=== PATIENT | female | born 1990 | race Hispanic/Latino ===

== ENCOUNTER 2025-06-03 04:54 | Emergency (ER) | payer SELFPAY ==
[2025-06-03 04:58] VITALS: BP 134/86; PULSE 92; RESP 18; TEMP 36.8; O2SAT 98
--- NOTE | 2025-06-03 06:21 | ED_ITS ---
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 This pain is bilaterally although worse the right compared to the left. Patient feels like it is pinching. Was initially reported that she felt dizzy but she denies this. She does have a headache. She states she feels inflamed. Has been trying ibuprofen and Tylenol at home but that does not help. No nausea. She also has a sore throat for which she experiences pain particularly when she eats or drinks water or speaks. She states it hurts to open her mouth. Symptoms started 3 days ago. She den ies any nasal congestion or rhinorrhea. No fevers but she had chills yesterday. She feels like her ear is draining. No cough. She denies any itchy eyes or ear. She has not been sneezing. She noticed that she had some diminished hearing in her right ear yesterday, not today. No tinnitus. Confirm she has a PCP. Related Data Allergies Allergy/AdvReac Type Severity Reaction Status Date / Time No Known Allergies Allergy Verified 06/03/25 06:30 Exam Narrative: GENERAL: Well-appearing, well-nourished, in moderate acute distress. HEAD: Normocephalic, atraumatic. EYES: Non icteric ENT: no epistaxis. Gross auditory acuity intact. Left external auditory canal with erythema but no effusion or bulging tympanic membrane which is otherwise pearly onofre. Patient does have tenderness to palpation and manipulation of the right ear. There is also drainage noted in the external auditory canal with erythema as well. Patient does not fully open mouth but no stefany trismus. Bilateral tonsillar hypertrophy. Uvula midline. No dysphonia. NECK: Supple. No meningismus. Mild lymphadenopathy. CHEST: Speaking in full sentences. No respiratory distress. HEART: Regular rate and rhythm. ABDOMEN: Obese but Soft, nondistended. EXTREMITIES: Normal range of motion. SKIN: Warm, dry, no rash. NEURO: No focal deficits. Alert and oriented. Answering questions. Following commands. Normal speech without aphasia or dysarthria. Observed ambulating with steady gait. PSYCH: Congruent mood and affect. Tearful Course Vital Signs Vital signs: Vital Signs Temperature 98.2 F 06/03/25 04:58 Pulse Rate 92 06/03/25 04:58 Respiratory Rate 18 06/03/25 04:58 Blood Pressure 134/86 06/03/25 04:58 Pulse Oximetry 98 06/03/25 04:58 Oxygen Delivery Room Air 06/03/25 04:58 Temperature 98.2 F 06/03/25 04:58 Pulse Rate 80 06/03/25 07:26 Respiratory Rate 18 06/03/25 07: Blood Pressure 139/83 06/03/25 07:26 Pulse Oximetry 99 06/03/25 07:26 Oxygen Delivery Room Air 06/03/25 04:58 Medical Decision Making MDM Narrative Medical decision making narrative: Patient presents with report of bilateral ear pain although right greater than left. She has also had headache and endorses a sore throat; symptoms started 3 days ago. Ibuprofen and Tylenol are not helping. Chills yesterday. No cough. In the emergency department they are afebrile with vital signs within normal limits. Strep not detected. Viral swab negative. Patient given 10 mg p.o. Decadron to reduce the inflammation and swelling consistent with pharyngitis. Also given ketorolac and lozenge. Prescribed ear drops, lozenges, Chloraseptic spray, and combination [id number] analgesic medications. Advised follow up. Otherwise stable for discharge, non toxic appear ing. VS remain normal. Differential Diagnosis Differential Diagnosis: Otitis media, otitis externa; acute viral syndrome; pharyngitis, strep pharyngitis; considered retropharyngeal abscess, peritonsillar abscess Vital Signs Vital Signs: Vital Signs Temperature 98.2 F 06/03/25 04:58 Pulse Rate 92 06/03/25 04:58 Respiratory Rate 18 06/03/25 04:58 Blood Pressure 134/86 06/03/25 04:58 Pulse Oximetry 98 06/03/25 04:58 Oxygen Delivery Room Air 06/03/25 04:58 Temperature 98.2 F 06/03/25 04:58 Pulse Rate 80 06/03/25 07:26 Respiratory Rate 18 06/03/25 07:26 Blood Pressure 139/83 06/03/25 07:26 Pulse Oximetry 99 06/03/25 07:26 Oxygen Delivery Room Air 06/03/25 04:58 Lab Data Labs: Lab Results 06/03/25 Range/Units 06:38 Influenza A (RT-PCR) Negative (Negative) Influenza B (RT-PCR) Negative (Negative) RSV (RT-PCR) Negative (Negative) SARS-CoV-2 RNA (RT-PCR) Negative (Negative) Group A Strep (PCR) Not detected (Negative) Discharge Plan Discharge Clinical Impression: External otitis of right ear, Pharyngitis, Acute viral syndrome, Otalgia of both ears, Cephalgia Patient Disposition: Home Condition: Stable Instructions: Antibiotic Form, Pharyngitis (ED), Swimmer's Ear (AC), Acute Headache (DC), Earache (ED), Viral Syndrome (ED) Additional Instructions: You tested negative for COVID, influenza a, influenza B, RSV, and strep. Follow-up with your primary care physician. Acetaminophen/Tylenol (maximum 4000 mg per day) is safe to take with NSAIDs (ibuprofen/Motrin) for pain relief. Abstain from water sports for 7-10 days. Avoid Q-tip or other foreign objects in the ear. Instill the antibiotic medication/drops into the ear while laying on your side and hold position for 3-5 minutes. Lozenges and spray have also been prescribed for the sore throat. You can also gargle with salt water. Return to the emergency department with any new or worsening symptoms such as difficulty breathing, unable to maintain hydration, unable to open mouth, fever >100.4F, etc. Patient Language: Stateless Prescriptions: New ofloxacin 0.3 % drops 5 drp EACH EAR DAILY 7 Days Qty: 10 0RF ibuprofen 600 mg tablet 600 mg PO TID PRN (Reason: pain) Qty: 30 0RF acetaminophen 500 mg capsule 1,000 mg PO Q6H PRN (Reason: pain) Qty: 30 0RF Cepacol Sore Throat (gillian-men) 15-2.6 mg lozenge 1 ana lilia mucous membrane Q2-4H PRN (Reason: sore throat) Qty: 16 0RF Chloraseptic Max Sore Throat 1.5-33 % spray,non-aerosol 1 spray mucous membrane 4-6XD PRN (Reason: sore throat) Qty: 118 0RF Rx Instructions: leave on area for 15 seconds then spit out; use at least 2 hours between doses Follow-up/Referrals: UNKNOWN,DOCTOR [Non-Staff] - Stand Alone Forms: Work/School Release IP Time of Disposition: 07:43
[2025-06-03] MEDS: KETOROLAC 30 MG/ML VIAL (*BKC) IM (06:43)
--- OUTSIDE RECORDS SUMMARY | 2025-06-03 06:51 | XMS_ITS | Clinical Summary ---
Author Organization [facility] Address [address] [place] [id number] Care Team Providers Care Apprentice Electrician Name Role Phone Alla Miles PA-C Primary Care Provider [phone] Allergies No known active allergies Medications methylPREDNISol angeles SHARON, (MEDROL DOSEPAK) 4 MG tablet 6 TABLETS ON DAY ONE, 5 TABLETS DAY TWO, 4 TABLETS DAY THREE, 3 TABLETS DAY FOUR, 2 TABLETS DAY FIVE, AND 1 TABLET DAY SIX 1 each 06/22/2024 Active Social History Tobacco Use Types Packs/Day Years Used Date Smoking Tobacco: Never Assessed Comments No Sex and Gender Information Value Date Recorded Sex Assigned at Not on file Legal Sex Female 9:38 AM CDT Gender Identity Not on file Sexual Orientation Not on file Last Filed Vital Signs Vital Sign Reading Time Taken Comments Blood Pressure 126/72 06/22/2024 11:21 AM CDT Pulse 79 06/22/2024 9:41 AM CDT Temperature 36.7 C (98 F) 06/22/2024 11:21 AM CDT Respiratory Rate 16 06/22/2024 11:21 AM CDT Oxygen Saturation 98% 06/22/2024 11:21 AM CDT Inhaled Oxygen Concentration - - Weight 113.4 kg (250 lb) 06/22/2024 9:41 AM CDT Height 152.4 cm (5') 06/22/2024 9:41 AM CDT Body Mass Index 48.82 06/22/2024 9:41 AM CDT Plan of Treatment Health Maintenance Due Date Last Done Comments Cervical Cancer Screening Pa ngozi Smear (Age 30 to 64) Every 3 Years 1992 Annual Physical 1995 Hepatitis C 2010 Hepatitis B Vaccines (1 of 3 - 19+ 3-dose series) 2011 HPV Vaccines (1 - 3-dose SCD M series) 2019 Cervical Cancer Screening Neri melvin with HPV Testing (Age 30 to 64) Every 5 Years 2022 Cervical Cancer Screening wi th HPV 2022 COVID-19 Vaccine (3 - 2023-2 5 season) 2024 11/21/2021, 10/24/2021 DTaP, Tdap and Td Vaccines ( 2 - Td or Tdap) 09/30/2029 09/30/2019 Meningococcal B Vaccine Aged Out No l onger eligible based on patient's age to complete this topic Meningococcal Vaccine Aged Out No sherman delmy eligible based on patient's age to complete this topic Pneumococcal Vaccine: Pediatrics (0 to 5 Years) and At-Risk Patients (6 to 49 Years) Aged Out No longer eligible b ased on patient's age to complete this topic RSV Immunizations Under 20 Months Aged Out No longer eligible b ased on patient's age to complete this topic Care Teams Apprentice Electrician Relationship Specialty Start Date End Date Alla Miles, ARAVIND PCP - General NURSE PRACTITIONER 06/22/24
--- OUTSIDE RECORDS SUMMARY | 2025-06-03 06:51 | XMS_ITS | Data Portability ---
Author Organization [facility] Address [address] [place] [address] Assessment No assessment recorded. Plan of Treatment Reminders Order Date Submit Date Provider Last Modified By Organization Details Last Modified Time Details Appointments None recorded . Lab None recorded . Referral physical therapis t referral 2020 ATHENAFAX Not available 15:50:10 Procedures None recorded . Surgeries None recorded . Imaging XR, foot 2020 021 [email or web address] [facility] ([facility] [address] [place], [address], 15:43:13 XR, ankle 2020 021 [email or web address] [facility] ([facility]), [address] [place], [address], 15:43:52 XR, lower extremit y 2020 021 [email or web address] [facility] ([facility]), [address] [place], [address], 15:44:10 Medication Orders duloxeti ne 60 mg capsule, delayed release 2020 [facility] #[id number], [address] [facility], [place], [place], [id number], 15:20:06 duloxeti ne 20 mg capsule, delayed release 2020 021 [email or web address] [facility] #[id number], [address] [facility], [place], [place], [id number], 12:11:59 Patient TargetsNo targets recorded. Patient InstructionsNo instructions recorded. Reason for Referral Physical Therapist Referral for Strain of calf muscle Referring Physician: Javed Grayson, Podiatry, Encounter Date: 10/04/2021 Results Created Date Observation Date Name Description Value Unit Range Abnormal Flag Note LastModifiedBy Organization Detail LastModifiedTime 09/23/20 21 09/20/2021 XR, foot Examin ation: Left foot 3 views Access ion: [id number] Exam Date/T sherry: 2020 2:47 PM Reason For Exam: [id number]: Arthra lgia of the ankle and/or foot Compar nimco: None Techni que: AP, obliqu e, and latera l views of the left foot were obtain ed. Findin gs: Planta r enthes opathy . No fractu re, disloc ation or acute bony abnorm ality. No lytic or sclero tic change s are presen t. ===== IMPRES MARTITA: ===== 1. No acute osseou s abnorm alitie s. READ BY: ЕКАТЕРИНА HAYS Date: 2020 15:35 [email or web address] [facility] ([facility]) [address] [place] [address], [address], 11/23/2021 14:18:26 09/23/20 21 09/20/2021 XR, ankle Examin ation: 3 views left ankle Access ion: [id number] Exam Date/T sherry: 2020 2:46 PM Reason For Exam: [id number]: Arthra lgia of the ankle and/or foot Compar nimco: None Techni que: AP, obliqu e, and latera l views of the left ankle were obtain ed. Findin gs: No acute fractu re or disloc ation. No destru ctive osseou s lytic or sclero tic lesion s. Ankle mortis e is intact . No radiop aque foreig n bodies . Mild Achill es and planta r enthes opathy is presen t. No ankle effusi on. No bony erosiv e change s are presen t. ===== IMPRES MARTITA: ===== 1. No acute osseou s abnorm ality. READ BY: ЕКАТЕРИНА HAYS Date: 2020 15:37 tdavydov [facility] [address], [place], [address], 11/23/2021 14:18:27 09/23/20 21 09/20/2021 XR, lower extre mity Examin ation: 2 views left tibia/ fibula Exam date/t sherry: 2020 2:48 PM Access ion: [id number] Reason For Exam: [id number]: Arthra lgia of the ankle and/or foot Compar nimco: None Techni que: AP and latera l radiog raphs of the left tibia/ fibula were obtain ed Findin gs: No acute fractu re or disloc ation. No destru ctive osseou s lytic or sclero tic lesion s. No radiop aque foreig n bodies . Ankle mortis e is intact . ====== ===== IMPRES MARTITA: ====== ====== = 1. No acute osseou s abnorm alitie s. ====== ====== ====== ====== ====== ====== READ BY: ЕКАТЕРИНА HAYS Date: 2020 15:39 tdavydov [facility] [address], [place], [address], 11/23/2021 14:18:27 03/10/20 24 03/10/2024 lab* No observ ation record ed. [email or web address] [place] [address] [address], [place], [address], 03/15/2024 11:01:09 Result Notes Documentation Provider Name and Address Organization Details Recorded Time Xr, Foot : Examination: Left foot 3 views Exam Date/Time: 09/20/2021 2:47 PM Reason For Exam: [id number]: Arthralgia of the ankle and/or foot Comparison: None Technique: AP, oblique, and lateral views of the left foot were obtained. Findings: Plantar enthesopathy. No fracture, dislocation or acute bony abnormality. No lytic or sclerotic changes are present. ===== IMPRESSION: ===== 1. No acute osseous abnormalities. READ BY: ЕКАТЕРИНА SANTIAGO Date: 09/20/2021 15:35 MADHAV DUKE, GUSTAVO [address] [place], [address], [facility] 11/23/2021 14:18:26 Xr, Ankle : Examination: 3 views left ankle Exam Date/Time: 09/20/2021 2:46 PM Reason For Exam: [id number]: Arthralgia of the ankle and/or foot Comparison: None Technique: AP, oblique, and lateral views of the left ankle were obtained. Findings: No acute fracture or dislocation. No destructive osseous lytic or sclerotic lesions. Ankle mortise is intact. No radiopaque foreign bodies. Mild Achilles and plantar enthesopathy is present. No ankle effusion. No bony erosive changes are present. ===== IMPRESSION: ===== 1. No acute osseous abnormality. READ BY: ЕКАТЕРИНА SANTIAGO Date: 09/20/2021 15:37 MADHAV DUKE, GUSTAVO [address] [place], [address], [facility] 11/23/2021 14:18:27 Xr, Lower Extremity : Examination: 2 views left tibia/fibula Exam date/time: 09/20/2021 2:48 PM Reason For Exam: [id number]: Arthralgia of the ankle and/or foot Comparison: None Technique: AP and lateral radiographs of the left tibia/fibula were obtained Findings: No acute fracture or dislocation. No destructive osseous lytic or sclerotic lesions. No radiopaque foreign bodies. Ankle mortise is intact. IMPRESSION: 1. No acute osseous abnormalities. READ BY: ЕКАТЕРИНА SANTIAGO Date: 09/20/2021 15:39 MADHAV DUKE, DPM [address] [place], [address], [facility] 11/23/2021 14:18:27 Medical Equipment None Reported. Allergies No known drug allergies Medications Name Sig Start Date Stop Date Status Note LastModified by Organization Details LastModified Time meloxicam 15 mg tablet TAKE 1 TABLET BY MOUTH EVERY DAY 09/20 completed Not Available Not Available Not Available duloxetine 20 mg capsule,lupis yed release TAKE 1 CAPSULE BY MOUTH EVERY DAY FOR 14 DAYS 12/28 completed Not Available Not Available Not Available duloxetine 60 mg capsule,lupis yed release TAKE 1 CAPSULE BY MOUTH EVERY DAY active Not Available Not Available No t Available Vitals Date Recorded Body height Body mass index (BMI) Body weight Heart rate Body temperature Pain severity - 0-10 verbal numeric rating [Score] - Reported Systolic And Diastolic Provider Name and Address Organization Details Last Updated DateTime 152.4 cm 40.9 kg/m2 95980.5 2 g 91 /min 97.3 [degF] 4 133/83 mm[Hg] Chaya Simon LPN [facility] 14:34:04 Date Recorded Body height Heart rate Body temperature Systolic And Diastolic Provider Name and Address Organization Details Last Updated DateTime 10/04/2021 152.4 cm 89 /min 98.6 [degF] 129/81 mm[Hg] Brian Anna MA [facility] 10/04/2021 14:19:49 Social History Question Answer Notes LastModified by Organizat ion Details LastModified Time Tobacco Smoking Status Never Smoker Chaya Simon LPN null, [facility] 09/20/2021 15:20:08 What Is Your Relationship Status? Single [email or web address] Information not available 09/20/2021 Sex: Unknown Functional Status None recorded. Mental Status None recorded. Family History Nothing Reported. Medical History No medical history recorded. Gynecological HistoryNo gynecological history recorded. Obstetrics History GPAL:G 0 P 0 0 0 0 Past Encounters Encounter ID Performer Location Encounter Start Date Encounter Closed Date Diagnosis/Indication Diagnosis SNOMED-CT Code Diagnosis ICD10 Code Diagnosis Note [id number] MADHAV DUKE DPM [facility] [address] [place] [address] 09/20/2021 14:11:13 11/07/2021 10:15:51 Pain in left foot 9746804897 36272 M79.672 Pain of le ft ankle joint 4005507886 1690524 M25.572 x-ray results reviewed and discussed with patient, no fracture or bony abnormalit y noted on films Neuralgia 78016794 M79.2 Strain of calf muscle 28 2934320 S86.112A possible MRI at follow-up appointmen t if pain not resolved of left knee, rule-out calf muscle tear/injur y to hamstrings /knee flexors. Possible referral to ortho if needed at next visit. Localized edema 70442540 4 R60.0 recommnede d use of knee compressio n sleeve to left lower extremity to aid in alleviatio n of swelling as well as immoblizat ion to allow for soft tissue structures to properly heal Muscle weakness 46526498 M62.81 [id number] JAVED GRAYSON DPM [facility] [address] [place] [address] 10/04/2021 14:16:02 10/11/2021 14:52:05 Pain in left foot 6249208602 88066 M79.672 Pain of le ft ankle joint 4878275749 8006756 M25.572 x-ray results reviewed and discussed with patient, no fracture or bony abnormalit y noted on films Neuralgia 07126302 M79.2 Strain of calf muscle 28 9534009 S86.112D ordered physical therapy for rom, gait training, stretching , strengthen ing, evaluate and treat Localized edema 97432031 4 R60.0 recommnede d use of knee compressio n sleeve to left lower extremity to aid in alleviatio n of swelling as well as immoblizat ion to allow for soft tissue structures to properly heal Muscle weakness 64914675 M62.81 Health Concerns Section Related Observation LastModified by Organization Detai ls LastModified Time None Recorded Concern Status LastModified by Organization Details LastModified Time None Recorded Advance Directives Directive None Recorded Payers None recorded. Notes Date Note Type Note Provider Name and Address Organization Details Recorded Time 09/20/2021 text/html 31 year old female presents to clinic with chief complaint of left posterior knee and calf pain, as well as pain to dorsal lateral aspect of left foot. Patient states the pain began about a year ago when she had a fall down some stairs. After the fall she had been unable to bare much weight to the left lower extremity for the initial three days, following which she was able to ambulate with residual pain. Patient states the pain is on and off and often times randomly comes about. States the pain usually begins in her calf muscles and from there usually she feels it in her knee, and then the pain will travel to the top of her left foot. Describes the pain to be an electric type of shooting sensation from the back of her knee radiating to the top and outside of her left foot. Denies ever having x-rays taken to left lower extremity. MADHAV DUKE DPM [address] [place], [address], [facility] 09/20/2021 18:18:26 10/04/2021 text/html ROS as noted in the HPI 31 year old female presents f/u with chief complaint of left calf cramping pain improved to a grade of 7/10 with the duloxetine 20mg. The achy pains to the knee and dorsal lateral aspect of left foot have also greatly improved. Patient states the pain began about a year ago when she had a fall down some stairs. After the fall she had been unable to bare much weight to the left lower extremity for the initial three days, following which she was able to ambulate with residual pain. Patient states the pain is on and off and often times randomly comes about. States the pain usually begins in her calf muscles and from there usually she feels it in her knee, and then the pain will travel to the top of her left foot. JAVED GRAYSON, GUSTAVO [address] [place], [address], [facility] 10/04/2021 15:22:11 OBGyn Episode No OBEpisode recorded.
--- OUTSIDE RECORDS SUMMARY | 2025-06-03 06:51 | XMS_ITS | Continuity of Care Document ---
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 Name Role Phone Gentry Hwang MD Unavailable Unavailable Allergies, Adverse Reactions, Alerts Substance Reaction Status Criticality No Known Allergies Active No Inform ation Medications Medication Instructions Dosage Effective Dates (start - stop) Status Comments Flagyl 500 mg tablet take 1 tablet by or al route every 6 hours 500 MG - Active Cipro 500 mg tablet take 1 tablet by ora l route every 12 hours 500 MG - Active Zantac 150 mg tablet take 1 tablet by or al route 2 times every day - Active loratadine 10 mg tablet take 1 tablet by oral route every day 10 MG - Active triamcinolone acetonide 0.1 % topical cream apply by topical route 2 times every day a thin layer to the affected area(s) 0.00 - Active Procedures Procedure Date Voided Encounter HEPATITIS A VACCINE, ADULT DOSAGE, FOR I NTRAMUSCULAR USE Urinalysis, Auto, w/o Scope URINE TEST, BY VISUAL [employer] CO MPARISON METHODS OFFICE/OUTPATIENT VISIT, NEW OFFICE/OUTPATIENT VISIT, NEW Alcohol and/or drug screening 6 URINE TEST, BY VISUAL [employer] MPARISON METHODS Urinalysis, Auto, w/o Scope OFFICE/OUTPATIENT VISIT, NEW Advance Directives Directive Yes / No Effective Date File Name No Information Encounters Encounter Description Practice Location Reason(s) For Visit Diagnoses Date Provider Providers [facility]ied on [facility]counter [facility] [address], [place], [place], [id number] , tel:[phone] Urgent Care No Information 3 Jaiden Rinaldi. [address], [place], [place], [id number], . tel:[phone] Referring Provider: Gentry Hwang [address], [place], [address] . tel:[phone] OFFICE/OUTPA TIENT VISIT, [facility], [address], [place], [place], [id number] , tel:[phone] Urgent Care Hep A (chief complaint) Body mass index (BMI) 39.0-39.9, adultEncounter for immunizationEncoun ter for test, result positiveEncounter for screening, unspecified 9 Jaiden Rinaldi. [address], [place], [place], [id number], . tel:[phone] OFFICE/OUTPA TIENT VISIT, [facility], [address], [place], [place], [id number] , tel:[phone] Urgent Care abdominal pain (chief complaint) Abdominal painEncounter for screening for other disorder 6 No Information OFFICE/OUTPA TIENT VISIT, [facility], [address], [place], [place], [address] , tel:[phone] Urgent Care possible allergic reaction (chief complaint) Rash 4 Jaiden Rinaldi. [address], [place], [place], [address], . tel:[phone] Referring Provider: Gentry Hwang, [address], [place], [address] . tel:[phone] Family History Family Member Type Diagnosis Age At Onset No Information Immunizations Vaccine Date Status Comments Vaqta/Havrix (HepA adult) administered So urce: New Immunization Record Payers Payer name Insurance type Covered democrat ID Authoriza tion(s) No Information Social History Type Description Quantity Date Captured Comments Alcohol Use Details Unknown Caffeine Use Details Unknown Tobacco Use Status No Information Smoking Status No Information Sex Female Chief Complaint And Reason For Visit No Information Reason For Referral Reason For Referral No Information Plan Of Treatment Date Type Action Status Nutrition Recommendation Nutrition therap y completed History Of Present Illness Encounter Date Complaint History Of Prese nt Illness Hep A 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 Doing well, no complaints. Been trying to get . abdominal pain possible allergic reaction C/O r ed itchy red raised rash on arms, legs, back, and trunk for two days. None on face or neck, slightly on upper chest. No known exposure but did lift and carry large sheets of aluminum yesterday. No new foods, meds, soaps, detergents. No one else in family with similar rash. Denies contact with brush or weeds. Doing well otherwise. They are here on vacation from [place] and she does have a PCP back home in [place].States it was bad enough last night to go to a hospital on [facility] where she was given a 500mg pill to take twice a day. She is unsure what this is. 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
[2025-06-03 07:19] LABS: Strep Group A RT-PCR NOT DETECTED (Negative)
[2025-06-03 07:26] VITALS: BP 139/83; PULSE 80; RESP 18; O2SAT 99
[2025-06-03 07:29] LABS: Influenza A QL RT-PCR Negative (Negative); Influenza B QL RT-PCR Negative (Negative); RSV RNA, RT-PCR Negative (Negative); SARS-CoV-2 RNA PCR Negative (Negative)
[2025-06-03] MEDS: BENZOCAINE/MENTHOL (*BKC) 18 EA LOZENGE 1 LOZENGE PO (07:54)
== END 2025-06-03 08:05 | disposition home or self-care (01) ==
PROVIDERS: Emergency Provider Student in an Organized Health Care Education/Training Program; PCP Physician Assistant
DX: H60.91 Unspecified otitis externa, right ear (principal); J02.9 Acute pharyngitis, unspecified; R51.9 Headache, unspecified; B34.9 Viral infection, unspecified; Z20.822 Contact with and (suspected) exposure to COVID-19
CPT/HCPCS: 87637; 87651; 96372; 99283; A9270; J1885; J8540